=== PATIENT | female | born 1975 | race Two or more races ===

== ENCOUNTER 2016-04-21 05:40 | Inpatient (IN) | payer MEDICAID ==
[2016-04-19 11:30] LABS: CALC OSMOLALITY 279 mosm/kg (275-300); CALCIUM 9.1 mg/dL (8.5-10.1); CARBON DIOXIDE 28.8 mmol/L (21.0-32.0); CHLORIDE - SERUM 105 mmol/L (98-107); CREATININE - SERUM 0.7 mg/dL (0.6-1.3); GLUCOSE 87 mg/dL (74-106); POTASSIUM - SERUM 4.1 mmol/L (3.5-5.1); SODIUM 142 mmol/L (136-145); UREA NITROGEN 6 mg/dL (7-18); eGFR NON AFRICAN AMERICAN > 90 mL/min (90-120)
[2016-04-19 12:13] LABS: BASOPHILS 0.6 % (0.0-2.0); EOSINOPHILS 3.5 % (0-7); HEMATOCRIT 37.3 % (36.0-48.0); HEMOGLOBIN 11.5 g/dL (12-16); IMMATURE GRANULOCYTES 0.2 % (0-5); LYMPHOCYTES 33.6 % (15-50); MCH 25.8 pg (26.0-34.0); MCHC 30.8 g/dL (31.0-37.0); MCV 83.8 fL (80.0-100.0); MEAN PLATELET VOLUME 10.7 fL (7.4-10.4); MONOCYTES 6.5 % (2-11); NEUTROPHILS 55.6 % (40-80); PLATELET COUNT 294 10x3/uL (130-400); RBC 4.45 10x6/uL (4.00-5.40); RDW 16.4 % (11.5-14.5); WBC 5.4 10x3/uL (4.8-10.8)
--- NOTE | 2016-04-20 16:55 | HP ---
PATIENT: RL SALAZAR MEDICAL RECORD: [id number] ACCOUNT: [id number] LOCATION:[facility] : 79 ADMISSION DATE: 04/21/16 HISTORY AND PHYSICAL EXAMINATION HISTORY OF PRESENT ILLNESS: This patient is a 40-year-old 2, para 2 female who desires hysterectomy for pelvic pain and enlarging myomas contributing to severe menorrhagia and anemia. She desires ovarian preservation if possible. MEDICAL HISTORY: DRUG ALLERGIES: None known. CURRENT MEDICATIONS: None. REVIEW OF SYSTEMS: No chest pain, no dyspnea. Positive for pelvic pain and severely heavy bleeding vaginally. MEDICAL PROBLEMS: Denies heart disease, diabetes, kidney problems, thyroid problems. Positive for anemia. PREVIOUS SURGERIES: None. FAMILY HISTORY: Noncontributory. SOCIAL HISTORY: The patient is with 2 children. PHYSICAL EXAMINATION: VITAL SIGNS: Weight is 143, blood pressure 100/60. HEENT: Grossly unremarkable. LUNGS: Clear. HEART: Regular rate and rhythm. ABDOMEN: Soft, mild tenderness. PELVIC: Current and reveals a large uterus filling the entire pelvis. EXTREMITIES: No cyanosis, clubbing or edema. NEUROLOGIC: Grossly intact. IMPRESSION: Anemia and pelvic pain. PLAN: The patient desires hysterectomy. This will be an abdominal hysterectomy. She desires ovarian conservation if possible and understands the possible need for removal of the ovaries and therefore hormone therapy afterwards. Discussed risks of surgery with patient and her including anesthesia, infection, bleeding, possibility of injury to other organs or second operation. I have answered all their questions. TRANSINT:[id number] Voice Confirmation ID: [id number] DOCUMENT ID: [id number] HISTORY AND PHYSICAL [id number] RL SALAZAR BRENDA MD at 1655 CC: [id number] DICTATION DATE: 04/20/16 1300 PROJECT SCIENTIST: 04/20/16 132[id number] [place] [address]
[2016-04-21] VITALS (15 sets, daily range): BP systolic 72–110; BP diastolic 38–74; Ht 162.6 cm; Wt 63.6 kg
[~2016-04-21] VITALS: Ht 162.6 cm; Wt 63.6 kg
[~2016-04-21 05:40] MED LIST: EZFE 200200 MG PO; MULTIPLE VITAMI1 TA1 PO
[2016-04-21 06:33] LABS: HCG URINE NEGATIVE (NEGATIVE)
--- NOTE | 2016-04-21 11:34 | NUR ---
PT WAS RECEIVED FROM RECOVERY. SHE IS DROWZY. BUT EASILY AWAKENS. SHE IS TRANSFERRED FROM STRETCHER TO BED. HER VS ARE TAKEN AND ARE STABLE. SCD' ARE HOOKED UP. IV PATENT R WRIST. LR INFUSING. DEMEROL ENVIRONMENTAL SERVICE AIDE WAS STARTED FOR PAIN CONTROL AND PT WAS INSTRUCTED ON THE USE OF THIS. PT IS STILL DROWSY SO WILL REINTERATE USE TO PT. LUNGS- CLEAR. HEART- RRR. ABD SOFT WITH TENDERNESS WITH LOW TRANSVERSE INCISION WITH STERI STRIPS INTACT. CLEAN , DRY AND INTACT. MAHENDRA PAD NOTED. GONSALES INTACT. GONSALES SECURED TO R THIGH. URINE IS FRANSISCO IN COLOR. BED IS LOW, CALL LIGHT IN REACH. SIDE RAILS UP X 2. GAVE PAT A FEW SIPS OF WATER.
--- NOTE | 2016-04-21 12:12 | NUR ---
REPOSITIONED PT TO LEFT SIDE. NO LOCHIA NOTED TO BLUE PAD. DENIES FURTHER NEEDS. BED LOW. PHONE AND CALL LIGHT IN REACH. SIDE RAILS UP X2.
--- NOTE | 2016-04-21 12:40 | NUR ---
PT LYING IN BED RESTING WITH EYES CLOSED. FAMILY MEMBERS AT BEDSIDE. PT RATES PAIN 8/10. VSS. DENIES NEEDS. BED LOW. PHONE AND CALL LIGHT IN REACH. SIDE RAILS UP X2.
--- NOTE | 2016-04-21 13:21 | NUR ---
PT BP 88/54. INFORMED PT TO PRESS SMOKE INSPECTOR BUTTON LESS. PT VERBALIZES UNDERSTANDING. PLACED NEW ICE PACK ON PT. NO LOCHIA NOTED TO BLUE PAD. PT DENIES FURTHER NEEDS. BED LOW. PHONE AND CALL LIGHT IN REACH. SIDE RAILS UP X2.
--- NOTE | 2016-04-21 14:14 | NUR ---
PT LYING IN BED RESTING WITH FAMILY MEMBERS AT BEDSIDE. NO LOCHIA NOTED TO BLUE PAD. ABDOMINAL DRESSING CDI. DENIES NEEDS AT THIS TIME. BED LOW. PHONE AND CALL LIGHT IN REACH. SIDE RAILS UP X2.
--- NOTE | 2016-04-21 14:53 | NUR ---
PT C/O BEING NAUSEATED. PHENERGAM 25 MG GIVEN IM RIGHT DORSOGLUTEAL. BED IS LOW, SIDE RAILS UPX 2 AND CALL LIGHT IN REACH.
--- NOTE | 2016-04-21 15:45 | NUR ---
CALLED DR JACKMAN STATED PT'S BP IS 78/32. PULSE 68. O2 SAT 97. DR JACKMAN STATES TO GIVE HER NS BOLUS 500 MG OVER AN HOUR. STARTED THIS AND PT STATES THAT SHE JUST FEELS UNEASY AND RUBS UP AND DOWN THE CENTER OF HER CHEST. DENIES CHEST PAIN, DENIES ARM PAIN AND NO SOB. I ASKED IF IF FELT MORE LIKE INDIGESTION AND SHE STATES YES. CALLED DR JACKMAN BACK AND SHE ORDERED MYLANTA. SHE HOW THIS DOES AND IF DOESNT HELP TO CALL DR SAENZ SHE HAS CHECKED OUT TO HER PERSONAL PROPERTY ASSESSOR.
--- NOTE | 2016-04-21 17:00 | NUR ---
PT LYING IN BED RESTING WITH EYES CLOSED. CHANGED MAHENDRA PAD. NO LOCHIA NOTED TO PAD. DENIES NEEDS. BED LOW. PHONE AND CALL LIGHT IN REACH. SIDE RAILS UP X2.
--- NOTE | 2016-04-21 17:45 | NUR ---
PT C/O NAUSEA. ADMINISTERED ZOFRAN IVP FOR NAUSEA. PT REQUESTS TO SIT UP IN BED. STATES SHE FEELS LIKE SHE IS GOING TO THROW UP. PT DENIES FURTHER NEEDS AT THIS TIME. BED LOW. PHONE AND CALL LIGHT IN REACH. SIDE RAILS UP X2.
--- NOTE | 2016-04-21 18:03 | NUR ---
PT LYING IN BED RESTING WITH EYES CLOSED. PT REQUESTS HOB BE RAISED UP A LITTLE MORE. STATES ZOFRAN HAS NOT HELPED NAUSEA ANY. DENIES OTHER NEEDS. BED LOW. PHONE AND CALL LIGHT IN REACH. SIDE RAILS UP X2.
--- NOTE | 2016-04-21 19:15 | NUR ---
PT RESTING WITH EYES CLOSED, AROUSES TO SOFT VERBAL STIMULATION, VS OBTAINED, IV IN RIGHT WRIST INTACT WITH NO REDNESS OR EDEMA INFUSING VIA PUMP D5LR AT 125 ML/HR, DEMEROL SHIRT FINISHER TO DELIVER 10MG/10MINS FOR PAIN CONTROL, PT RATES INC PAIN 09/04, PT INST ON AND PUSHES SHIRT FINISHER BUTTON AT THIS TIME, TenebrilKINI INC WITH STERI STRIPS CDI WITH NO DRAINAGE NOTED, FRESH ICE PACK TO ABD, GONSALES CATH INTACT, EMPTIED 600 MLS OF CLEAR YELLOW URINE, PT REPORTS FLATUS, NO VAG BLEEDING NOTED, SCD'S ON AND WORKING PROPERLY, PT DENIES NEEDS AT THIS TIME
--- NOTE | 2016-04-21 20:00 | NUR ---
PT STAVE LOG RIPSAW OPERATOR LIGHT, PT "SPIT UP", C/O NAUSEA, INFORMED PT THAT SHE HAS PHENERGAN ORDERED FOR THIS TIME BUT ZOFRAN WAS NOT DUE YET, PT REFUSES PHENERGAN AT THIS TIME, DENIES FURTHER NEEDS, DINNER TRAY AND TRASH REMOVED
--- NOTE | 2016-04-21 21:35 | NUR ---
VS OBTAINED, SEE FLOW SHEET, ADM TORADOL SIVP AND PEPCID PO PER MD ORDERS, SEE EMAR, PT DENIES ANY NAUSEA AT THIS TIME, FRESH H20 SERVED, PT DENIES FURTHER NEEDS, SPOUSE AND FAMILY AT BEDSIDE
--- NOTE | 2016-04-21 22:11 | NUR ---
PT RESTING WITH EYES CLOSED, RESP QUIET, NO DISTRESS NOTED, LEFT UNDISTURBED AT THIS TIME, BEDDING PLACED IN ROOM FOR SISTER WHEN SHE ARRIVES
[2016-04-22 00:20] VITALS: BP 100/73
--- NOTE | 2016-04-22 00:20 | NUR ---
PT RESTING WITH EYES CLOSED, AROUSES TO SOFT VERBAL STIMULATION, VS OBTAINED, GONSALES CATH EMPTIED, PT RATES INC PAIN 11/04, PT INST TO PUSH RIGHT OF WAY MANAGER BUTTON, PT INFORMED AGAIN IN USING RIGHT OF WAY MANAGER FOR PAIN MANAGEMENT, PT DID NOT PUSH BUTTON, PT DENIES NEEDS AT THIS TIME, SISTER AT BEDSIDE
--- NOTE | 2016-04-22 01:28 | NUR ---
NEW BAG OF D5LR HUNG VIA PUMP INFUSING AT 125 ML/HR, SEE EMAR
--- NOTE | 2016-04-22 02:23 | NUR ---
PT AROUSES TO OPENING OF DOOR, DENIES NEEDS AT THIS TIME, SISTER ASLEEP IN RECLINER
[2016-04-22 03:53] VITALS: BP 107/67
--- NOTE | 2016-04-22 03:53 | NUR ---
PT RESTING WITH EYES CLOSED, AROUSES TO SOFT VERBAL STIMULATION, VS OBTAINED, I&O'S COLLECTED, MAHENDRA PAD CHANGED, NO VAG BLEEDING NOTED, ADM TORADOL SIVP PER MD ORDERS, SEE EMAR, SCD'S CONTINUE ON AND WORKING PROPERLY, PT PUSHES RHEUMATOLOGY SPECIALIST BUTTON AT THIS TIME, PT DENIES NEEDS, SISTER ASLEEP IN RECLINER
--- NOTE | 2016-04-22 04:38 | NUR ---
PT NOW RESTING ON RIGHT SIDE WITH EYES CLOSED, RESP QUIET, NO DISTRESS NOTED, LEFT UNDISTURBED AT THIS TIME, SISTER ASLEEP IN RECLINER
[2016-04-22 06:00] LABS: HEMATOCRIT 27.7 % (36.0-48.0); MCH 26.8 pg (26.0-34.0); MCHC 32.5 g/dL (31.0-37.0); MCV 82.4 fL (80.0-100.0); MEAN PLATELET VOLUME 10.4 fL (7.4-10.4); RBC 3.36 10x6/uL (4.00-5.40); RDW 16.4 % (11.5-14.5); WBC 11.3 10x3/uL (4.8-10.8)
--- NOTE | 2016-04-22 06:33 | NUR ---
PT RESTING WITH EYES CLOSED, RESP QUIET, NO DISTRESS NOTED, LEFT UNDISTURBED AT THIS TIME, SISTER AT BEDSIDE
--- NOTE | 2016-04-22 07:00 | NUR ---
SHIFT REPORT TO DAY SHIFT
--- NOTE | 2016-04-22 07:33 | OP ---
PATIENT NAME: RL SALAZAR MEDICAL RECORD: [id number] :79 LOCATION:[facility] ADMISSION DATE:04/21/16 SURGEON: JENNIFER JACKMAN MD DATE OF OPERATION: 04/21/2016 PREOPERATIVE DIAGNOSES: Myomas, anemia, and pelvic pain. POSTOPERATIVE DIAGNOSES: Myomas, anemia, and pelvic pain. PROCEDURE: Total abdominal hysterectomy. SURGEON: Jennifer Jackman MD ANESTHESIA: General. FINDINGS: A 10-12 weeks size, irregular uterus with large myoma, normal appearing ovaries. ESTIMATED BLOOD LOSS: 200 cc. COMPLICATIONS OF SURGERY: None. OPERATIVE NOTE: The patient was taken to the OR and under adequate general anesthesia, prepped and draped in the usual manner for abdominal procedures. A transverse incision was made in the lower abdomen and extended in a Pfannenstiel manner through subcutaneous tissue and fascia. Peritoneum was elevated and incised and this incision extended from the symphysis pubis to within 6 cm of the umbilicus, avoiding the bladder and abdominal organs. The O'Eren-O'Aguilar retractor was used to pack bowel out of the operative field and inspection of the pelvic contents revealed the above listed findings. The round ligaments were identified on the right and left and ligated using #1 chromic suture. The uteroovarian ligaments and fallopian tubes were then ligated using Zachariah clamps and #1 chromic suture on the right and left uterine vessels were skeletonized and ligated on the right and left using Zachariah clamps and #1 chromic suture. The peritoneum was advanced over the lower uterine segment and cervix. The cardinal ligaments were progressively ligated with #1 chromic suture. Vaginal angles were then clamped and the specimen excised. Specimen included cervix and uterus, inclusive of myoma. Vaginal angles were made hemostatic using a U configuration #1 chromic suture. The vaginal apex was closed using interrupted figure of 8, #1 chromic suture. Pelvis was copiously irrigated and suctioned and hemostasis was confirmed. Sponge, needle counts were correct. All instruments were removed. The fascial layer was closed in a running noninterlocking #1 PDS loop suture. Skin incision reapproximated in 2 layers, first layer running 2-0 plain gut suture. Skin closed in a subcuticular 2-0 plain gut. Dermabond was applied to the incision followed by a Steri-Strip dressing. The patient went to the recovery area in good condition with Steinberg catheter in place. All sponge, needle counts and instrument counts were correct. TRANSINT:[id number] Voice Confirmation ID: [id number] DOCUMENT ID: [id number] OPERATIVE REPORT [id number] RL SALAAZR BRENDA MD at 0733 CC: [id number] DICTATION DATE: 04/21/1635 DIRECTOR PAID MEDIA: 04/21/16 1055 [address] IN [id number] [place] [address]
--- NOTE | 2016-04-22 07:50 | NUR ---
PT LYING IN BED RESTING WITH EYES CLOSED. VSS. HEART RRR. LUNG SOUNDS CLEAR BILATERALLY. BOWEL SOUNDS ACTIVE X4 QUADRENTS. LOW TRANSVERSE INCISION NOTED TO ABDOMEN WITH STERI STRIPS. ABDOMEN ROUND, SOFT. CDI. NO REDNESS, DRAINAGE, SWELLING, OR FOUL ODOR NOTED. PT RATES PAIN 7/10. SCDS NOTED TO BLE. IV NOTED TO RIGHT WRIST INFUSING D5 LR @ 125 CC/HR. PATENT. DENIES NEEDS AT THIS TIME. BED LOW. PHONE AND CALL LIGHT IN REACH. SIDE RAILS UP X2.
--- NOTE | 2016-04-22 08:00 | NUR ---
DR JACKMAN IN ROOM WITH PT. NO NEEDS NOTED AT THIS TIME.
[2016-04-22 08:12] VITALS: BP 117/71
--- NOTE | 2016-04-22 09:25 | NUR ---
PT LYING IN BED WITH FAMILY MEMBER AT BEDSIDE. SALINE LOCKED PT IV. REMOVED GONSALES. PT STATES SHE WANTS TO GET UP TO USE RESTROOM. ASSISTED PT TO RESTROOM. 50 CC VOIDED. PT BACK IN BED. DENIES NEEDS AT THIS TIME. BED LOW. PHONE AND CALL LIGHT IN REACH. SIDE RAILS UP X2.
--- NOTE | 2016-04-22 10:14 | NUR ---
PT UP USING RESTROOM. VOIDED 200 ML. PT BACK IN BED. REQUESTS HEAT TO BE TURNED ON. RATES PAIN 11/04. FAMILY MEMBER AT BEDSIDE. DENIES OTHER NEEDS. BED LOW. PHONE AND CALL LIGHT IN REACH. SIDE RAILS UP X2.
--- NOTE | 2016-04-22 10:31 | NUR ---
PT LYING IN BED RESTING. ADMINISTERED TORADOL IVP. PT RATES PAIN 8/10. PT STATES SHE FEELS HEAVY AROUND CHEST AND ABDOMEN. RAISED PT HOB. PT DENIES OTHER NEEDS. BED LOW. PHONE AND CALL LIGHT IN REACH. SIDE RAILS UP X2.
--- NOTE | 2016-04-22 11:00 | NUR ---
PT WAS RECEIVED FROM RECOVERY ROOM. SHE IS DOZING OFF AND ON. SHE WAS TRANSFERRED FROM STRETCHER TO BED. SCD'S HOOKED UP BILATERAL LOWER EXTREMITIES. IV PATENT LEFT FOREARM. KR RINGERS INFUSING AT 125 CC/HR. DILAUDID PRODUCT LINE MANAGER INITIATED 0.2 Q 10 MIN WITH 4 MG LOCKOUT. GONSALES CATH INTACT WITH METHYLENE BLUE IN URINE. GEN - SLEEPY BUT EASILY AWAKENED. LUNGS- CLEAR. HEART- RRR, ABD- SOFT WITH LOW TRANSVERSE INCISION WITH PRIMAPORE DRESSING. TENDER. NO BLOOD NOTED ON PAD. FAMILY AT BEDSIDE. BED IS LOW, CALL LIGHT IN REACH AND SIDE RAILS UP X 2. PT EDUCATION ON INCENTIVE SPIROMETRY, PRODUCT LINE MANAGER, TURNING COUGHING AND DEEPBREATHING DONE.
--- NOTE | 2016-04-22 11:00 | NUR ---
OFFERED TO GIVE PT MYLANTA TO SEE IF IT WOULD HELP WITH HEAVINESS PT FELT AROUND CHEST AND ABDOMEN. PT REFUSES MEDICATION. STATES THAT THE PAIN HAS GOTTEN BETTER AFTER BEING SAT UP. DENIES OTHER NEEDS. BED LOW. PHONE AND CALL LIGHT IN REACH. SIDE RAILS UP X2.
--- NOTE | 2016-04-22 11:50 | NUR ---
PT LYING IN BED RESTING WITH EYES CLOSED. FAMILY MEMBER AT BEDSIDE. NO NEEDS NOTED AT THIS TIME. BED LOW. PHONE AND CALL LIGHT IN REACH. SIDE RAILS UP X2.
--- NOTE | 2016-04-22 12:00 | NUR ---
PT BP 178/111. NO DISTRESS NOTED. PT STATES THAT HER PAIN IS MUCH BETTER. LIGHT LOCHIA RUBRA NOTED TO MAHENDRA PAD. NO LOCHIA NOTED TO BLUE PAD. INCISIONAL DRESSING CDI. NOTIFIED DR. METCALF CONCERNING PTS BLOOD PRESSURE. ORDERED HYDROLAZINE 5 MG TO BE GIVEN NOW. PULSE 102. RESP 18. O2 SAT 98%.
--- NOTE | 2016-04-22 12:35 | NUR ---
PT RESTING QUIETLY WITH EYES CLOSED. RESPIRATIONS EVEN NON-LABORED. NO NEEDS NOTED AT THIS TIME. FAMILY MEMBER AT BEDSIDE. BED LOW. PHONE AND CALL LIGHT IN REACH. SIDE RAILS UP X2.
--- NOTE | 2016-04-22 13:06 | NUR ---
PT DAYCARE ASSISTANT LIGHT. STATES SHE THREW UP AFTER EATING A FEW BITES OF FOOD. APPROX 2OO CC NOTED IN FRACTURE BEDPAN. VSS. ADMINISTERED ZOFRAN IVP. FLUSHED WITH NS. PT RATES PAIN 5/10. DENIES OTHER NEEDS. BED LOW. PHONE AND CALL LIGHT IN REACH. SIDE RAILS UP X2.
--- NOTE | 2016-04-22 13:59 | NUR ---
PT LYING IN BED. RATES PAIN 08/04. BP 116/77. ADMINISTERED PERCOCET 5 PO. PT REQUESTS MORE WATER. DENIES OTHER NEEDS. BED LOW. PHONE AND CALL LIGHT IN REACH. SIDE RAILS UP X2.
--- NOTE | 2016-04-22 14:54 | NUR ---
PT IN BED RESTING QUIETLY WITH EYES CLOSED. REASSESSED PTS PAIN. RATES PAIN 3/10. DENIES FURTHER NEEDS. BED LOW. PHONE AND CALL LIGHT IN REACH. SIDE RAILS UP X2.
--- NOTE | 2016-04-22 15:59 | NUR ---
Pt resting eyes closed lying on left side - lightly snoring at this time. No acute distress noted at this time.
--- NOTE | 2016-04-22 16:57 | NUR ---
PT LYING IN BED RESTING WITH EYES CLOSED, EASILY AROUSED. PT RATES PAIN 6/10. ADMINISTERED TORADOL IVP. PT STATES SHE DOES NOT WISH TO GET UP TO SHOWER. INFORMED PT SHE COULD GET UP TONIGHT IF SHE FELT BETTER TO SHOWER. REINFORCED NEED TO AMBULATE. PT STATES SHE IS GETTING UP FREQUENTLY TO USE RESTROOM. SCANT LOCHIA NOTED TO MAHENDRA PAD. PT DENIES FURTHER NEEDS. BED LOW. PHONE AND CALL LIGHT IN REACH. SIDE RAILS UP X2.
--- NOTE | 2016-04-22 17:36 | NUR ---
PT LYING IN BED RESTING. SPOUSE AT BEDSIDE. DENIES NEEDS AT THIS TIME. BED LOW. PHONE AND CALL LIGHT IN REACH. SIDE RAILS UP X2.
--- NOTE | 2016-04-22 18:30 | NUR ---
PT RESTING QUIETLY WITH EYES CLOSED. NO ACUTE DISTRESS NOTED AT THIS TIME. BED LOW. PHONE AND CALL LIGHT IN REACH. SIDE RAILS UP X2.
--- NOTE | 2016-04-22 19:15 | NUR ---
PM ROUNDS MADE, PT SITTING UP IN BED IN EATING DINNER, INFORMED PT THAT I WILL RETURN TO DO ASSESSMENT AFTER SHE IS FINISHED EATING, PT STATES "THANK YOU", REQUESTED AND SERVED FRESH H20 TO PT AND HER SISTER, PT DENIES FURTHER NEEDS
[2016-04-22 20:04] VITALS: BP 102/63
--- NOTE | 2016-04-22 20:04 | NUR ---
ASSESSMENT PER FLOW SHEET, VS OBTAINED, SALINE LOCK TO RIGHT WRIST INTACT WITH NO REDNESS OR EDEMA, BIKINI INC WITH STERI STRIPS CDI WITH NO DRAINAGE NOTED, PT REPORTS FLATUS, NO BM AND VOIDING WITH NO DIFFICULTY, PT C/O INC PAIN, ADM PERCOCET PO PER MD ORDERS, SEE EMAR, PT INFORMED THAT SCD'S WILL BE PLACED AT BEDTIME, PT VERBALIZES UNDERSTANDING, ENC PT TO AMB NELSON BEFORE BED, PT VERBALIZES UNDERSTANDING, PT DENIES FURTHER NEEDS, PT'S SISTER AT BEDSIDE
--- NOTE | 2016-04-22 21:02 | NUR ---
PT AWAKE, TALKING TO SISTER, ADM 2100 MEDS PO PER MD ORDERS, SEE EMAR, WITH FRESH H20, PT DENIES FURTHER NEEDS AT THIS TIME
--- NOTE | 2016-04-22 21:19 | NUR ---
PT AMB, GAIT STEADY, TO NURSES DESK, AND BACK TO ROOM, SISTER AT SIDE
--- NOTE | 2016-04-22 22:28 | NUR ---
PT UP TO BR, GAIT STEADY, VOIDED WITH NO DIFFICULTY, PT BACK TO BED, SCD'S APPLIED AND WORKING PROPERLY, ATTEMPTED TO FLUSH SALINE LOCK, PT STATES "THAT REALLY HURTS", SALINE LOCK REMOVED, TIP INTACT, PRESSURE HELD, BANDAID APPLIED, PT DENIES NEEDS AT THIS TIME, SISTER AT BEDSIDE
[2016-04-23 00:10] VITALS: BP 91/58
--- NOTE | 2016-04-23 00:10 | NUR ---
PT RESTING WITH EYES CLOSED, AROUSES TO SOFT VERBAL STIMULATION, VS OBTAINED, SCD'S REMOVED, PT UP TO BR, GAIT STEADY, VOIDED BY SELF WITH NO DIFFICULTY, PT BACK TO BED, SCD'S APPLIED AND WORKING PROPERLY, PT DENIES NEEDS OR PAIN AT THIS TIME, SISTER AT BEDSIDE
--- NOTE | 2016-04-23 02:09 | NUR ---
PT RESTING WITH EYES CLOSED, RESP QUIET, NO DISTRESS NOTED, LEFT UNDISTURBED AT THIS TIME, SISTER ASLEEP IN RECLINER
--- NOTE | 2016-04-23 04:12 | NUR ---
PT RESTING WITH EYES CLOSED, RESP QUIET, NO DISTRESS NOTED, LEFT UNDISTURBED AT THIS TIME, SISTER ASLEEP IN RECLINER
--- NOTE | 2016-04-23 06:19 | NUR ---
PT RESTING WITH EYES CLOSED, RESP QUIET, NO DISTRESS NOTED, LEFT UNDISTURBED AT THIS TIME, SISTER ASLEEP IN RECLINER
--- NOTE | 2016-04-23 07:20 | NUR ---
PATIENT IS RESTING ON HER SIDE WITH PILLOWS PULLED UP TO HER CHIN. HER BREATHING IS DEEP AND EVEN. A FEMALE VISITOR RESTS IN THE BEDISDE FORTUNATOD NOT DISTURB PATINET. Dougherty
[2016-04-23 07:45] VITALS: BP 95/62
--- NOTE | 2016-04-23 08:10 | NUR ---
ASSESSMENT COMPLETED. HER INCISION STERISTRIPS ARE ALL INTACT AND CLEAN. VSS FOR HER. SHE DENIES NEEDS AT THIS TIME, STATES THAT SHE WOULD LIKE PAIN MEDICATION, HER BELLY ONLY HURTS WHEN SHE MOVES ABOUT.
--- NOTE | 2016-04-23 08:25 | NUR ---
PATIENT GIVEN HER MORNING MEDICATIONS ALONG WITH HER PAIN MEDICATION. SHE RATES HER PAIN A 4-5. HER BROW IS FURROWED AND SHE GUARDS HERSELF SHE MOVES AROUND IN HER BED. HER IS AT THE BEDSIDE AND THEY EXPRESS THAT THEY ARE READY TO GO HOME SOON POSSIBLE. SHE STATES THAT HER MOTHER WILL BE AT HER HOME TO ASSIST HER WITH ALL NEEDS AND SHE'D LIKE TO WAIT UNTIL SHE GETS HOME TO SHOWER. I ASKED IF SHE'D LIKE TO USE A TRANSLATER SERVICE TO DISCUSS INSTRUCTIONS FOR DISCHARGE, SHE DECLINED AND DOES RESPOND TO CONVERSATION IF SHE UNDERSTANDS EVERYTHING I'VE SAID TO THIS POINT. SPEAKS DANISH WELL. THEY SPEAK ANOTHER LANGUAGE TO ONE ANOTHER.
[2016-04-23] MEDS ORDERED: MEPERIDINE HCL50 MG PO (09:14)
[2016-04-23] MEDS ORDERED: IBUPROFEN600 MG PO (09:14)
--- NOTE | 2016-04-23 10:15 | NUR ---
DISCUSSED DISCHARGE INSTRUCTIONS. INCLUDED INSTRUCTIONS R/T PELVIC REST, MEDICATIONS, S/S OF INFECTION AND WHEN TO CALL THE DOCTOR'S OFFICE. DISCUSSED FOLLOW UP APPT AND PRESCRIPTIONS GIVEN. SHE IS RATING HER PAIN A 2, STATES THAT IT REALLY ONLY HURST WHEN SHE GETS UP TO WALK. SHE ALSO STATED THAT SHE CAN READ WOLOF WE WERE DISCUSSING HER PAPERWORK.
--- NOTE | 2016-04-23 10:32 | NUR ---
PATIENT WHEELED OUT TO WAITING VEHICLE IN WHEELCHAIR. SHE AND ARE ANXIOUS TO BE HOME. DENIES NEEDS.
== END 2016-04-23 10:49 | disposition home or self-care (01) | DRG 743 ==
LOC: D.WS 05:40 → D.SDCHOLD 05:40 → D.WS 11:10
PROVIDERS: ADMIT Obstetrics & Gynecology
PROC: 0UTC0ZZ Resection of Cervix, Open Approach (ICD-10-PCS; 2016-04-21)
PROC: 0UT90ZZ Resection of Uterus, Open Approach (ICD-10-PCS; principal; 2016-04-21 07:30)
DX: N92.0 Excessive and frequent menstruation with regular cycle (principal); D64.9 Anemia, unspecified; D25.9 Leiomyoma of uterus, unspecified